=== PATIENT | female | born 1975 | race Caucasian/White ===

== ENCOUNTER 2017-04-18 12:30 | Inpatient (IN) | payer OTHER ==
[2017-04-18 14:16] VITALS: BMI 28.3
--- NOTE | 2017-04-18 17:03 | HP ---
COWS - Scale Resting Pulse: 0= [place] 80 or Below Sweatin= Chills/Flushing Restless Observation: 3= Extraneous Movement Pupil Size: 0= Normal to Room Light Bone or Joint Aches: 2= Severe Diffuse Aches Runny Nose/ Eye Tearin= Runny Nose/Eyes GI Upset > 30mins: 2= Nausea/Diarrhea Tremor Observation: 2= Slight Tremor Visible Yawning Observation: 0= None Anxiety or Irritability: 2=Irritable/Anxious Goose Flesh Skin: 0=Smooth Skin COWS Score: 14 Admission [facility] Chief Complaint: withdrawal sx Allergies/Adverse Reactions: Allergies Allergy/AdvReac Type Severity Reaction Status Date / Time No Known Allergies Allergy Verified 04/18/17 17:20 History of Present Illness: 41 years old female with long history of opioid nicotine dependence history of hypertension and bipolar ii is admitted to detox Exam Limitations: No Limitations - Ebola screening Have you traveled outside of the country in the last 21 days: No Have you had contact with anyone from an Ebola affected area: No Have you been sick,other than usual withdrawal symptoms: No Do you have a fever: No - Review of Systems Constitutional: Chills, Changes in sleep, Weight Stable EENT: reports: No Symptoms Reported Respiratory: reports: No Symptoms reported Cardiac: reports: No Symptoms Reported GI: reports: Nausea, Poor Fluid Intake, Vomiting, Abdominal cramping : reports: No Symptoms Reported Musculoskeletal: reports: Back Pain, Joint Pain, Muscle Pain, Neck Pain Integumentary: reports: Change in Color (both hands feet legs) Neuro: reports: Tremors Endocrine: reports: No Symptoms Reported Hematology: reports: No Symptoms Reported Psychiatric: reports: Judgement Intact, Orientated x3, Depressed Other Systems: Reviewed and Negative Patient History - Patient Medical History Hx Anemia: No Hx Asthma: No Hx Chronic Obstructive Pulmonary Disease (COPD): No Hx Cancer: No Hx Cardiac Disorders: No Hx Congestive Heart Failure: No Hx Hypertension: Yes (by history no med) Hx Hypercholesterolemia: No Hx Pacemaker: No HX Cerebrovascular Accident: No Hx Seizures: No Hx Dementia: No Hx Diabetes: No Hx Gastrointestinal Disorders: No Hx Liver Disease: No Hx Genitourinary Disorders: No Hx Sexually Transmitted Disorders: No Hx Renal Disease (ESRD): No Hx Thyroid Disease: No Hx Human Immunodeficiency Virus (HIV): No Hx Hepatitis C: Yes Hx Depression: No Hx Suicide Attempt: No Hx Bipolar Disorder: Yes Hx Schizophrenia: No - Patient Surgical History Past Surgical History: Yes Hx Neurologic Surgery: No Hx Cataract Extraction: No Hx Cardiac Surgery: No Hx Lung Surgery: No Hx Breast Surgery: No Hx Breast Biopsy: No Hx Abdominal Surgery: No Hx Appendectomy: No Hx Cholecystectomy: No Hx Genitourinary Surgery: No Hx Section: No Hx Orthopedic Surgery: Yes (left leg 2000) Hx Hysterectomy: No Anesthesia Reaction: No - PPD History Previous Implant?: Yes Documented Results: Negative w/o proof Implanted On Prior R Admission?: No PPD to be Administered?: Yes - Reproductive History Patient is a Female of Child Bearing Age (11 -55 yrs old): Yes Last Menstrual Period: 04/16/17 Patient : No - Smoking Cessation Smoking history: Current every day smoker Have you smoked in the past 12 months: Yes Aproximately how many cigarettes per day: 20 Cigars Per Day: 0 Hx Chewing Tobacco Use: No Initiated information on smoking cessation: Yes 'Breaking Loose' booklet given: 04/18/17 - Substance & Tx. History Hx Alcohol Use: Yes Hx Substance Use: Yes Substance Use Type: Alcohol, Cocaine, Opiates Hx Substance Use Treatment: Yes - Substances Abused Alcohol Route: Oral Frequency: 1-2 times per week Amount used: pint volka Age of first use: 11 Date of Last Use: 04/18/17 Heroin Route: Injection Frequency: Daily Amount used: 8 bags Age of first use: 19 Date of Last Use: 04/18/17 Family Disease History - Family Disease History Family Disease History: Diabetes: Father (), Mother (), CA: Father, Respiratory: Mother, Other: Brother ( over dose) Admission Physical Exam BHS - Vital Signs Vital Signs: Vital Signs - 24 hr 04/18/17 14:00 Temperature 95.9 F L Pulse Rate 68 Respiratory 18 Rate Blood Pressure 155/84 - Physical General Appearance: Yes: Appropriately Dressed, Mild Distress, Alcohol on Breath , Tremorous, Irritable, Sweating, Anxious HEENTM: Yes: Hearing grossly Normal, Normal ENT Inspection, Normocephalic, Normal Voice Respiratory: Yes: Chest Non-Tender, Lungs Clear, Normal Breath Sounds, No Respiratory Distress, No Accessory Muscle Use Neck: Yes: Supple, Trachea in good position Breast: Yes: Breasts Symetrical Cardiology: Yes: Regular Rhythm, Regular Rate, S1, S2 Abdominal: Yes: Non Tender, Soft Genitourinary: Yes: Within Normal Limits Back: Yes: Normal Inspection Musculoskeletal: Yes: full range of Motion, Gait Steady, Back pain, Muscle Pain (left leg) Extremities: Yes: Normal Range of Motion, Non-Tender, Tremors, Swelling (legs arms) Neurological: Yes: Fully Oriented, Alert, Motor Strength 5/5, Normal Response, Depressed Affect Integumentary: Yes: Warm, Track Bates Lymphatic: Yes: Within Normal Limits - Diagnostic (1) Alcohol dependence with uncomplicated withdrawal Current Visit: Yes Status: Acute (2) Opioid dependence with withdrawal Current Visit: Yes Status: Acute (3) Nicotine dependence Current Visit: Yes Status: Acute Qualifiers: Nicotine product type: cigarettes Substance use status: in withdrawal Qualified Code(s): F17.213 - Nicotine dependence, cigarettes, with withdrawal (4) Hepatitis C antibody test positive Current Visit: Yes Status: Chronic (5) Bipolar II disorder Current Visit: Yes Status: Suspected (6) Abscess Current Visit: Yes Status: Acute Comment: iv opioid arms legs neck history of pancreatitis, endocarditis, bone infection of right leg Cleared for Admission [facility] - Detox or Rehab [facility] Level of Care: Medically Managed Detox Regimen/Protocol: Methadone [facility] Breath Alcohol Content Breath Alcohol Content: 0.252 Urine Pregancy Test - Result Urine Test Results: Negative- NO Line Present Urine Drug Screen - Results Drug Screen Negative: No Urine Drug Screen Results: IRENE-Cocaine, OPI-Opiates, BZO-Benzodiazepines
[2017-04-18] MEDS ORDERED: METHADONE HCL 10 MG TABLET (FOR DETOX USE ONLY) PO ONE ×4 (17:33→23:00)
[2017-04-18] MEDS ORDERED: LOPERAMIDE HCL 2 MG CAPSULE PO PRN (17:33)
[2017-04-18] MEDS ORDERED: MAG HYDROX/AL HYDROX/SIMETH 30 ML UNIT-DOSE CUP PO PRN (17:33)
[2017-04-18] MEDS ORDERED: P-EPHED 60MG/TRIPROLIDI 2.5MG TABLET PO PRN (17:33)
[2017-04-18] MEDS ORDERED: MAGNESIUM HYDROX 2400MG/30ML ORAL SUSPENSION 30 ML CUP PO PRN (17:33)
[2017-04-18] MEDS ORDERED: diazePAM 5 MG TABLET PO PRN (17:33)
[2017-04-18] MEDS ORDERED: MAGNESIUM CITRATE 300 ML BOTTLE PO PRN (17:33)
[2017-04-18] MEDS ORDERED: MENTHOL/PHENOL 1 EACH UD MM PRN (17:33)
[2017-04-18] MEDS ORDERED: ACETAMINOPHEN 325 MG TABLET (FP) PO PRN (17:33)
[2017-04-18] MEDS ORDERED: diphenhydrAMINE HCL 50 MG CAPSULE PO PRN (17:33)
[2017-04-18] MEDS ORDERED: guaiFENesin/D-METHORPHAN HB 10 ML UNIT-DOSE CUPS PO PRN (17:33)
[2017-04-18] MEDS ORDERED: diazePAM 5 MG TABLET PO ONE (18:45)
[2017-04-18] MEDS: CLINDAMYCIN HCL 150 MG CAPSULE (FP) PO SCH ×2 (19:48→23:47)
[2017-04-18 21:29] LABS: URINE APPEARANCE CLEAR; URINE BILIRUBIN NEGATIVE (NEGATIVE); URINE BLOOD NEGATIVE (NEGATIVE); URINE COLOR STRAW; URINE GLUCOSE (UA) NEGATIVE (NEGATIVE); URINE KETONE NEGATIVE (NEGATIVE); URINE LEUK ESTERASE 1+ (NEGATIVE); URINE NITRITE NEGATIVE (NEGATIVE); URINE PROTEIN NEGATIVE (NEGATIVE); URINE UROBILINOGEN NEGATIVE E.U./dl (0.2-1.0)
[2017-04-18 21:32] LABS: URINE BACTERIA RARE /hpf (NONE SEEN); URINE RBC 1 /hpf (0-3); URINE WBC 5 /hpf (3-5)
[2017-04-18] MEDS: diazePAM 5 MG TABLET PO SCH (22:09)
[2017-04-18] MEDS: THIAMINE HCL 100 MG TABLET (FP) PO SCH (22:11)
[2017-04-19] MEDS: diazePAM 5 MG TABLET PO SCH ×3 (06:59→22:09)
[2017-04-19] MEDS: CLINDAMYCIN HCL 150 MG CAPSULE (FP) PO SCH ×3 (07:00→19:12)
[2017-04-19] MEDS: PRENATAL VITAMINS W/ FOLIC ACID TABLET (FP) PO SCH (09:15)
[2017-04-19] MEDS: NICOTINE 21 MG/24 HOURS TOPICAL PATCH TD SCH (09:16)
[2017-04-19] MEDS: diazePAM 5 MG TABLET PO PRN ×3 (09:17→19:12)
[2017-04-19] MEDS ORDERED: diazePAM 5 MG TABLET PO PRN (09:17)
--- NOTE | 2017-04-19 09:25 | PN ---
S CIWA - CIWA Score Nausea/Vomitin Muscle Tremors: 3 Anxiety: 3 Agitation: 3 Paroxysmal Sweats: 3 Orientation: 0-Oriented Tacttile Disturbances: 2-Mild Itch/Numbness/Burn Auditory Disturbances: 0-None Visual Disturbances: 0-None Headache: 0-None Present CIWA-Ar Total Score: 17 BHS COWS - Scale Resting Pulse: 0= [place] 80 or Below Sweatin=Flushed/Facial Moisture Restless Observation: 1= Difficult to Sit Still Pupil Size: 1= Pupils >than Normal Bone or Joint Aches: 2= Severe Diffuse Aches Runny Nose/ Eye Tearin= Nasal Congestion GI Upset > 30mins: 2= Nausea/Diarrhea Tremor Observation of Outstretched Hands: 2= Slight Tremor Visible Yawning Observation: 0= None Anxiety or Irritability: 2=Irritable/Anxious Goose Flesh Skin: 0=Smooth Skin COWS Score: 13 BHS Progress Note (SOAP) Subjective: interrupted sleep, sweats, shakes , irritable Objective: 04/19/17 09:22 Vital Signs Temp 98.2 F 04/19/17 06:31 Pulse 63 04/19/17 06:31 Resp 16 04/19/17 06:31 BP 93/60 04/19/17 06:31 Pulse Ox Intake & Output 04/18/17 04/18/17 04/19/17 11:59 23:59 11:59 Weight 170 lb Other: Voiding Method Toilet Height 5 ft 5 in Body Mass Index (BMI) 28.3 Weight Measurement Method Standing Scale 04/19/17 10:30 pt aox3, irritable Assessment: 04/19/17 09:23 withdrawal sx;s 04/19/17 10:31 Plan: cont. detox, increase fluids start methadone detox f/up pending labs
[2017-04-19] MEDS ORDERED: METHADONE HCL 10 MG TABLET (FOR DETOX USE ONLY) PO ONE ×3 (09:27→23:00)
[2017-04-19] MEDS ORDERED: METHADONE HCL 10 MG TABLET (FOR DETOX USE ONLY) PO SCH (10:00)
[2017-04-19 10:19] LABS: MCH 31.3 pg (25.7-33.7); MCHC 32.9 g/dl (32.0-36.0); MEAN CELL VOLUME 95.2 fl (80-96); PLATELET COUNT 258 K/MM3 (134-434); RDW 15.2 % (11.6-15.6); WHITE BLOOD COUNT 7.5 K/mm3 (4.0-10.0)
[2017-04-19 10:44] LABS: ALBUMIN 3.3 g/dl (3.4-5.0); ALK PHOS 123 U/L (45-117); ANION GAP 12 (8-16); BILIRUBIN,TOTAL 0.3 mg/dL (0.2-1.0); CALCIUM 8.8 mg/dL (8.5-10.1); CO2 22 mmol/L (21-32); CREATININE 0.6 mg/dL (0.55-1.02); GLUCOSE,RANDOM 79 mg/dL (74-106); SGOT/AST 138 U/L (15-37); SGPT/ALT 82 U/L (12-78); TOT PROT 7.5 g/dl (6.4-8.2)
--- NOTE | 2017-04-19 11:04 | CONSULT ---
[facility] Psychiatric Consult - Data Date of interview: 04/19/17 Admission source: [facility] Identifying data: This is 41 years old female with psychiatric hospitalization history, history of Bipolar disorder, intoxicated with Heroin, Alcohol and Nicotine Substance Abuse History: - Smoking Cessation. Smoking history: Current every day smoker. Have you smoked in the past 12 months: Yes. Aproximately how many cigarettes per day: 20. Cigars Per Day: 0. Hx Chewing Tobacco Use: No. Initiated information on smoking cessation: Yes. 'Breaking Loose' booklet given : 04/18/17. - Substance & Tx. History. Hx Alcohol Use: Yes. Hx Substance Use : Yes. Substance Use Type: Alcohol, Cocaine, Opiates. Hx Substance Use Treatment: Yes. - Substances Abused. Alcohol. Route: Oral. Frequency: 1- 2 times per week. Amount used: pint volka. Age of first use: 11. Date of Last Use: 04/18/17. Heroin. Route: Injection. Frequency: Daily. Amount used: 8 bags. Age of first use: 19. Date of Last Use: 04/18/17 Medical History: HepC+, MMTP 30mg per day Psychiatric History: Patient reports to carry Bipolar disorder, reports mopst recent psychfiatric admsision on more then 10 years ago, reportsa no medications taking prior to admission Physical/Sexual Abuse/Trauma History: Denies Additional Comment: Observation. Detox Unit Care Protocol Mental Status Exam - Mental Status Exam Alert and Oriented to: Person Cognitive Function: Fair Mood: Sad Affect: Flat Patient Behavior: Sedated Speech Pattern: Delayed Voice Loudness: Mildly Soft/Quiet Thought Process: Circumstantial Thought Disorder: Being Controlled Hallucinations: Denies Suicidal Ideation: Denies Homicidal Ideation: Denies Insight/Judgement: Fair Sleep: Difficulty falling asleep Appetite: Fair Muscle strength/Tone: Mild Hypotonicity Gait/Station: Shuffling Additional Comments: Observation. Detox Unit Care Protocol Psychiatric Findings - Problem List ([place] 1, 2,3) (1) Alcohol dependence with uncomplicated withdrawal Current Visit: Yes Status: Acute (2) Nicotine dependence Current Visit: Yes Status: Acute Qualifiers: Nicotine product type: cigarettes Substance use status: in withdrawal Qualified Code(s): F17.213 - Nicotine dependence, cigarettes, with withdrawal (3) Opioid dependence with withdrawal Current Visit: Yes Status: Acute (4) Bipolar II disorder Current Visit: Yes Status: Suspected (5) Drug-induced mood disorder Current Visit: Yes Status: Acute - Initial Treatment Plan Initial Treatment Plan: Observation. Detox Unit Care Protocol
--- NOTE | 2017-04-19 12:39 | EKG ---
Test Reason : Blood Pressure : / mmHG Vent. Rate : 065 BPM Atrial Rate : 065 BPM P-R Int : 142 ms QRS Dur : 082 ms QT Int : 398 ms P-R-T Axes : 042 076 073 degrees QTc Int : 413 ms NORMAL SINUS RHYTHM NORMAL ECG NO PREVIOUS ECGS AVAILABLE Confirmed by ALEXANDRU OROZCO, CHELSEA ([id number]) on 04/19/2017 12:39:30 PM Referred By: Confirmed By:CHELSEA HORVATH MD
[2017-04-19] MEDS: IBUPROFEN 400 MG TABLET (FP) PO PRN ×2 (12:41→19:17)
[2017-04-19] MEDS: NICOTINE POLACRILEX 4 MG GUM BC PRN ×2 (12:41→19:18)
[2017-04-19] MEDS: THIAMINE HCL 100 MG TABLET (FP) PO SCH (22:09)
[2017-04-20] MEDS: CLINDAMYCIN HCL 150 MG CAPSULE (FP) PO SCH ×5 (00:46→23:25)
[2017-04-20] MEDS: diazePAM 5 MG TABLET PO PRN ×4 (02:55→17:30)
[2017-04-20] MEDS: IBUPROFEN 400 MG TABLET (FP) PO PRN (08:51)
[2017-04-20] MEDS: NICOTINE POLACRILEX 4 MG GUM BC PRN ×2 (08:52→17:30)
[2017-04-20] MEDS ORDERED: METHADONE HCL 10 MG TABLET (FOR DETOX USE ONLY) PO ONE (10:00)
[2017-04-20] MEDS ORDERED: METHADONE HCL 5 MG TABLET (FOR DETOX USE ONLY) PO ONE (10:00)
[2017-04-20] MEDS ORDERED: METHADONE HCL 5 MG TABLET (FOR DETOX USE ONLY) PO SCH (10:00)
[2017-04-20] MEDS: PRENATAL VITAMINS W/ FOLIC ACID TABLET (FP) PO SCH (10:10)
[2017-04-20] MEDS: diazePAM 5 MG TABLET PO SCH ×2 (10:10→22:15)
[2017-04-20] MEDS: NICOTINE 21 MG/24 HOURS TOPICAL PATCH TD SCH (10:11)
--- NOTE | 2017-04-20 10:50 | PN ---
[facility] CIWA - CIWA Score Nausea/Vomitin-No Nausea/No Vomiting Muscle Tremors: 4-Moderate,w/Arms Extend Anxiety: 3 Agitation: 4-Moderately Restless Paroxysmal Sweats: 3 Orientation: 0-Oriented Tacttile Disturbances: 0-None Auditory Disturbances: 0-None Visual Disturbances: 0-None Headache: 0-None Present CIWA-Ar Total Score: 14 S COWS - Scale Resting Pulse: 0= [place] 80 or Below Sweatin=Flushed/Facial Moisture Restless Observation: 1= Difficult to Sit Still Pupil Size: 0= Normal to Room Light Bone or Joint Aches: 2= Severe Diffuse Aches Runny Nose/ Eye Tearin= Runny Nose/Eyes GI Upset > 30mins: 0= None Tremor Observation of Outstretched Hands: 2= Slight Tremor Visible Yawning Observation: 2= >3x During Session Anxiety or Irritability: 2=Irritable/Anxious Goose Flesh Skin: 3=Piloerection COWS Score: 16 S Progress Note (SOAP) Subjective: hot/cold sweats chills body aches spasms i need to see psych irritable Objective: 04/20/17 10:48 Vital Signs Temperature 97.9 F 04/20/17 09:44 Pulse Rate 74 04/20/17 09:44 Respiratory Rate 18 04/20/17 09:44 Blood Pressure 136/105 04/20/17 09:44 O2 Sat by Pulse Oximetry (%) Laboratory Tests 04/18/17 04/19/17 04/19/17 21:00 06:00 06:00 WBC 7.5 RBC 3.77 Hgb 11.8 Hct 35.9 MCV 95.2 MCHC 32.9 RDW 15.2 Plt Count 258 MPV 10.0 Sodium 140 Potassium 3.7 Chloride 106 Carbon Dioxide 22 Anion Gap 12 BUN 4 L Creatinine 0.6 Creat Clearance w eGFR > 60 Random Glucose 79 Calcium 8.8 Total Bilirubin 0.3 AST 138 H ALT 82 H Alkaline Phosphatase 123 H Total Protein 7.5 Albumin 3.3 L Urine Color Straw Urine Appearance Clear Urine pH 6.0 Ur Specific [place] <= 1.005 Urine Protein Negative Urine Glucose (UA) Negative Urine Ketones Negative Urine Blood Negative Urine Nitrite Negative Urine Bilirubin Negative Urine Urobilinogen Negative Ur Leukocyte Esterase 1+ H Urine RBC 1 Urine WBC 5 Ur Epithelial Cells Rare Urine Bacteria Rare RPR Titer 04/19/17 06:00 WBC RBC Hgb Hct MCV MCHC RDW Plt Count MPV Sodium Potassium Chloride Carbon Dioxide Anion Gap BUN Creatinine Creat Clearance w eGFR Random Glucose Calcium Total Bilirubin AST ALT Alkaline Phosphatase Total Protein Albumin Urine Color Urine Appearance Urine pH Ur Specific [place] Urine Protein Urine Glucose (UA) Urine Ketones Urine Blood Urine Nitrite Urine Bilirubin Urine Urobilinogen Ur Leukocyte Esterase Urine RBC Urine WBC Ur Epithelial Cells Urine Bacteria RPR Titer Nonreactive elevated ast/alt; repeat labs awake/alert ambulating no acute distress Assessment: 04/20/17 10:50 withdrawal sx Plan: continue detox increase fluids clonidine 0.1mg bid flexiril prn bacitracin prn motrin/tylenol prn
[2017-04-20] MEDS: CYCLOBENZAPRINE HCL 10 MG TABLET (FP) PO PRN ×2 (11:04→22:15)
[2017-04-20] MEDS: cloNIDine HCL 0.1 MG TABLET PO SCH ×2 (11:04→22:15)
[2017-04-20] MEDS: BACITRACIN 0.9 GM PACKET TP SCH ×2 (11:06→22:15)
[2017-04-20] MEDS: THIAMINE HCL 100 MG TABLET (FP) PO SCH (22:15)
[2017-04-21] MEDS: diazePAM 5 MG TABLET PO PRN ×2 (05:56→12:15)
[2017-04-21] MEDS: CLINDAMYCIN HCL 150 MG CAPSULE (FP) PO SCH ×3 (07:55→17:11)
[2017-04-21] MEDS: CYCLOBENZAPRINE HCL 10 MG TABLET (FP) PO PRN ×2 (07:58→22:25)
[2017-04-21] MEDS: NICOTINE POLACRILEX 4 MG GUM BC PRN ×2 (07:58→10:28)
[2017-04-21] MEDS ORDERED: METHADONE HCL 5 MG TABLET (FOR DETOX USE ONLY) PO ONE ×2 (10:00)
[2017-04-21] MEDS: PRENATAL VITAMINS W/ FOLIC ACID TABLET (FP) PO SCH (10:24)
[2017-04-21] MEDS: BACITRACIN 0.9 GM PACKET TP SCH ×2 (10:24→23:58)
[2017-04-21] MEDS: IBUPROFEN 600 MG TABLET (FP) PO PRN ×2 (10:25→22:25)
[2017-04-21] MEDS: diazePAM 5 MG TABLET PO SCH ×2 (10:25→22:26)
[2017-04-21] MEDS: cloNIDine HCL 0.1 MG TABLET PO SCH ×2 (10:25→22:26)
[2017-04-21] MEDS: NICOTINE 21 MG/24 HOURS TOPICAL PATCH TD SCH (10:26)
--- NOTE | 2017-04-21 11:52 | PN ---
BHS Progress Note (SOAP) Subjective: Interrupted Sleep, Tremors, Body Aches, Stomach Cramping, Anxious, Sweating. Objective: PT. A & O X 3, OBSERVED AMBULATING ON UNIT. PT. DENIES CHEST PAIN. 04/21/17 11:51 Vital Signs Temperature 97.9 F 04/21/17 10:00 Pulse Rate 62 04/21/17 10:00 Respiratory Rate 16 04/21/17 10:00 Blood Pressure 126/59 04/21/17 10:00 O2 Sat by Pulse Oximetry (%) Laboratory Tests 04/18/17 04/19/17 04/19/17 21:00 06:00 06:00 WBC 7.5 RBC 3.77 Hgb 11.8 Hct 35.9 MCV 95.2 MCHC 32.9 RDW 15.2 Plt Count 258 MPV 10.0 Sodium 140 Potassium 3.7 Chloride 106 Carbon Dioxide 22 Anion Gap 12 BUN 4 L Creatinine 0.6 Creat Clearance w eGFR > 60 Random Glucose 79 Calcium 8.8 Total Bilirubin 0.3 AST 138 H ALT 82 H Alkaline Phosphatase 123 H Total Protein 7.5 Albumin 3.3 L Urine Color Straw Urine Appearance Clear Urine pH 6.0 Ur Specific [place] <= 1.005 Urine Protein Negative Urine Glucose (UA) Negative Urine Ketones Negative Urine Blood Negative Urine Nitrite Negative Urine Bilirubin Negative Urine Urobilinogen Negative Ur Leukocyte Esterase 1+ H Urine RBC 1 Urine WBC 5 Ur Epithelial Cells Rare Urine Bacteria Rare RPR Titer 04/19/17 06:00 WBC RBC Hgb Hct MCV MCHC RDW Plt Count MPV Sodium Potassium Chloride Carbon Dioxide Anion Gap BUN Creatinine Creat Clearance w eGFR Random Glucose Calcium Total Bilirubin AST ALT Alkaline Phosphatase Total Protein Albumin Urine Color Urine Appearance Urine pH Ur Specific [place] Urine Protein Urine Glucose (UA) Urine Ketones Urine Blood Urine Nitrite Urine Bilirubin Urine Urobilinogen Ur Leukocyte Esterase Urine RBC Urine WBC Ur Epithelial Cells Urine Bacteria RPR Titer Nonreactive LABS NOTED. REPEAT AST, ALT RESULTS PENDING. 04/21/17 11:54 Assessment: 04/21/17 11:52 WITHDRAWAL SYMPTOMS. Plan: CONTINUE DETOX.
[2017-04-21 12:10] LABS: SGOT/AST 106 U/L (15-37); SGPT/ALT 83 U/L (12-78)
[2017-04-21] MEDS: THIAMINE HCL 100 MG TABLET (FP) PO SCH (22:25)
[2017-04-22] MEDS: CLINDAMYCIN HCL 150 MG CAPSULE (FP) PO SCH ×3 (06:38→12:58)
[2017-04-22] MEDS ORDERED: METHADONE HCL 5 MG TABLET (FOR DETOX USE ONLY) PO ONE (10:00)
[2017-04-22] MEDS ORDERED: METHADONE HCL 10 MG TABLET (FOR DETOX USE ONLY) PO SCH (10:00)
[2017-04-22] MEDS ORDERED: METHADONE HCL 10 MG TABLET (FOR DETOX USE ONLY) PO ONE (10:00)
[2017-04-22] MEDS ORDERED: diazePAM 5 MG TABLET PO SCH (10:00)
[2017-04-22] MEDS: IBUPROFEN 600 MG TABLET (FP) PO PRN (10:29)
[2017-04-22] MEDS: PRENATAL VITAMINS W/ FOLIC ACID TABLET (FP) PO SCH (10:29)
[2017-04-22] MEDS: NICOTINE 21 MG/24 HOURS TOPICAL PATCH TD SCH (10:30)
[2017-04-22] MEDS: BACITRACIN 0.9 GM PACKET TP SCH (10:30)
[2017-04-22] MEDS: cloNIDine HCL 0.1 MG TABLET PO SCH (10:30)
[2017-04-22 14:41] VITALS: BP 102/64; PULSE 71; TEMP 97.7
--- NOTE | 2017-04-22 15:22 | DS ---
[facility] Detox Discharge Summary Admission Date: 04/18/17 Discharge Date: 04/22/17 - History Present History: Alcohol Dependence, Opioid Dependence Additional Comments: ADVISED PT. TO FOLLOW-UP WITH [employer] FOR GENERAL MEDICAL ASSESSMENT AND FOR HISTORY OF ABSCESS AND HEP C. Pertinent Past History: HTN, Hep C, Bipolar Disorder. - Physical Exam Results Vital Signs: Vital Signs Temperature 97.7 F 04/22/17 14:41 Pulse Rate 71 04/22/17 14:41 Respiratory Rate 16 04/22/17 14:41 Blood Pressure 102/64 04/22/17 14:41 O2 Sat by Pulse Oximetry (%) Pertinent Admission Physical Exam Findings: WITHDRAWAL SYMPTOMS. Laboratory Tests 04/18/17 04/19/17 04/19/17 21:00 06:00 06:00 WBC 7.5 RBC 3.77 Hgb 11.8 Hct 35.9 MCV 95.2 MCHC 32.9 RDW 15.2 Plt Count 258 MPV 10.0 Sodium 140 Potassium 3.7 Chloride 106 Carbon Dioxide 22 Anion Gap 12 BUN 4 L Creatinine 0.6 Creat Clearance w eGFR > 60 Random Glucose 79 Calcium 8.8 Total Bilirubin 0.3 AST 138 H ALT 82 H Alkaline Phosphatase 123 H Total Protein 7.5 Albumin 3.3 L Urine Color Straw Urine Appearance Clear Urine pH 6.0 Ur Specific [place] <= 1.005 Urine Protein Negative Urine Glucose (UA) Negative Urine Ketones Negative Urine Blood Negative Urine Nitrite Negative Urine Bilirubin Negative Urine Urobilinogen Negative Ur Leukocyte Esterase 1+ H Urine RBC 1 Urine WBC 5 Ur Epithelial Cells Rare Urine Bacteria Rare RPR Titer 04/19/17 04/21/17 06:00 07:00 WBC RBC Hgb Hct MCV MCHC RDW Plt Count MPV Sodium Potassium Chloride Carbon Dioxide Anion Gap BUN Creatinine Creat Clearance w eGFR Random Glucose Calcium Total Bilirubin AST 106 H D ALT 83 H Alkaline Phosphatase Total Protein Albumin Urine Color Urine Appearance Urine pH Ur Specific [place] Urine Protein Urine Glucose (UA) Urine Ketones Urine Blood Urine Nitrite Urine Bilirubin Urine Urobilinogen Ur Leukocyte Esterase Urine RBC Urine WBC Ur Epithelial Cells Urine Bacteria RPR Titer Nonreactive LABS NOTED. - Treatment Hospital Course: Detoxed Safely - Medication Discharge Medications: Ambulatory Orders Clindamycin [Cleocin -] 150 mg PO Q6H 04/18/17 - Diagnosis (1) Abscess Status: Acute (2) Nicotine dependence Status: Chronic Qualifiers: Nicotine product type: cigarettes Substance use status: in withdrawal Qualified Code(s): F17.213 - Nicotine dependence, cigarettes, with withdrawal (3) Opioid dependence with withdrawal Status: Acute (4) Hepatitis C antibody test positive Status: Chronic (5) Bipolar II disorder Status: Suspected (6) Alcohol dependence with uncomplicated withdrawal Status: Acute (7) Drug-induced mood disorder Status: Acute - AMA Did Patient Leave Against Medical Advice: Yes (PATIENT DID NOT WANT TO STAY TO COMPLETE DETOX REGIMEN.)
[2017-04-23] MEDS ORDERED: METHADONE HCL 5 MG TABLET (FOR DETOX USE ONLY) PO ONE (06:00)
[2017-04-23] MEDS ORDERED: METHADONE HCL 5 MG TABLET (FOR DETOX USE ONLY) PO SCH (06:00)
[2017-04-23] MEDS ORDERED: METHADONE HCL 10 MG TABLET (FOR DETOX USE ONLY) PO ONE (10:00)
[2017-04-24] MEDS ORDERED: METHADONE HCL 5 MG TABLET (FOR DETOX USE ONLY) PO ONE (06:00)
== END 2017-04-22 15:08 | disposition left against medical advice (07) | DRG 770 ==
LOC: YASAS 12:30 → Y6N 18:31
PROVIDERS: ADMIT Internal Medicine Addiction Medicine; ATTEND Internal Medicine Addiction Medicine
PROC: HZ2ZZZZ Detoxification Services for Substance Abuse Treatment (ICD-10-PCS; principal; 2017-04-18)
DX: F11.23 Opioid dependence with withdrawal (principal); F10.230 Alcohol dependence with withdrawal, uncomplicated; F17.213 Nicotine dependence, cigarettes, with withdrawal; F19.24 Other psychoactive substance dependence with psychoactive substance-induced mood disorder; F31.81 Bipolar II disorder; B18.2 Chronic viral hepatitis C; R74.0 Nonspecific elevation of levels of transaminase and lactic acid dehydrogenase [LDH]; L02.91 Cutaneous abscess, unspecified; Z86.79 Personal history of other diseases of the circulatory system; Z87.19 Personal history of other diseases of the digestive system
CPT/HCPCS: 36415; 80053; 81003; 81015; 84450; 84460; 85027; 86593; 93005; 93010